=== PATIENT | male | born 1990 | race Native Hawaiian/Other Pacific Islander ===

== ENCOUNTER 2021-12-20 20:50 | Emergency (ER) | payer OTHER ==
[~2021-12-20] VITALS: Ht 185.4 cm; Wt 79.4 kg
[2021-12-20 20:55] VITALS: TEMP 98.1
[2021-12-20 21:40] LABS: PLATELET COUNT 288 K/uL (142-355)
[2021-12-20 21:45] LABS: POTASSIUM 3.9 mmol/L (3.6-5.2)
[2021-12-20 22:51] VITALS: BP 130/78
== END 2021-12-20 22:54 | disposition home or self-care (01) ==
LOC: ED 20:50
PROVIDERS: Emergency Medicine Emergency Medical Services
DX: R09.1 Pleurisy (principal)
CPT/HCPCS: 36415; 80048; 84484; 85027; 85379; 93005; 96360; 96375; 99284; J1885